=== PATIENT | female | born 1955 | race Caucasian/White ===

== ENCOUNTER 2017-01-19 13:09 | Emergency (ER) | payer OTHER ==
[~2017-01-19] VITALS: Ht 167.6 cm; Wt 64.6 kg
[2017-01-19] MEDS ORDERED: ULTRAM50 MG PO (16:33)
[2017-01-19 16:56] VITALS: BP 138/82
== END 2017-01-19 16:57 | disposition home or self-care (01) ==
LOC: EME 13:09
DX: S22.089A Unspecified fracture of T11-T12 vertebra, initial encounter for closed fracture (principal); S01.81XA Laceration without foreign body of other part of head, initial encounter; M54.5 Low back pain; M54.2 Cervicalgia; M25.551 Pain in right hip; V80.010A Animal-rider injured by fall from or being thrown from horse in noncollision accident, initial encounter; Y93.52 Activity, horseback riding; Z23 Encounter for immunization
CPT/HCPCS: 70450; 71020; 72100; 72170; 99281; 99284

== ENCOUNTER → 2017-03-19 | Outpatient (CLI) | payer OTHER ==
[~2017-03-19] MED LIST: ULTRAM50 MG PO
== END | disposition home or self-care (01) ==
LOC: CDC 15:37
DX: R94.31 Abnormal electrocardiogram [ECG] [EKG] (principal); S22.009A Unspecified fracture of unspecified thoracic vertebra, initial encounter for closed fracture; M54.5 Low back pain
CPT/HCPCS: 93000

== ENCOUNTER 2017-04-03 05:30 | Inpatient (IN) | payer OTHER ==
[~2017-04-03] VITALS: Ht 167.6 cm; Wt 71.7 kg
[~2017-04-03 05:30] MED LIST changes: +BIOTIN1000 MCG PO; +CLARITIN10 MG PO; +ONE DAILY WOME1 EACH PO
[2017-04-03 05:57] VITALS: BP 122/76
[2017-04-03 15:30] VITALS: BP 120/69
[2017-04-03 23:42] VITALS: BP 128/60
[2017-04-04 07:48] VITALS: BP 107/53
[2017-04-04] MEDS ORDERED: HYDROCODON-ACE1 EAC7 PO (08:31)
[2017-04-04] MEDS ORDERED: CYCLOBENZAPRINE10 MG PO (08:31)
== END 2017-04-04 15:08 | disposition home or self-care (01) | DRG 460 ==
LOC: 2SOUTH 05:30 → 3EAST 15:04
PROC: 0RG Upper Joints, Fusion (ICD-10-PCS; principal; 2017-04-03)
DX: S22.082A Unstable burst fracture of T11-T12 vertebra, initial encounter for closed fracture (principal); V80.010A Animal-rider injured by fall from or being thrown from horse in noncollision accident, initial encounter; H54.42 Blindness, left eye, normal vision right eye; Y92.79 Other farm location as the place of occurrence of the external cause; M54.5 Low back pain; M54.6 Pain in thoracic spine; K21.9 Gastro-esophageal reflux disease without esophagitis; Y93.89 Activity, other specified
CPT/HCPCS: 72070; 72100; 76000; 86900; 86901; C1713; C1821; J0131; J0330; J0690; J1100; J1170; J1580; J1644; J2250; J2405; J2710; J2765; J2930; J3010; J3370; J3480; S0020